=== PATIENT | male | born 1985 | race Caucasian/White ===

== ENCOUNTER → 2017-09-20 | Outpatient (CLI) | payer BC ==
[~2017-09-20] MED LIST: FLONASE 50 MCG16 GM; HYDROCHLOROTHIA25 M1; TAMSULOSIN HYD0.4 MG; VICOPROFEN 7.51 TAB; ZYRTEC ALLERGY10 MG
--- NOTE | 2017-09-21 14:35 | RADIOLOGY REPORT PS360 ---
CT ABD PELVIS W/O CONTRAST HISTORY: URIN ACID, UROLITHIASIS history of kidney stones. Six-month follow-up following lithotripsy. Patient Age: 32 years: Male Ordering Physician: Chino Lenz MD TECHNIQUE: Helical CT scanning performed the abdomen pelvis with no oral nor IV contrast utilized . Sagittal coronal reconstructions on CT workstation. COMPARISON :Previous CT abdomen pelvis February 29, 2016. FINDINGS Lung bases. No active disease. Benign calcified granuloma left lung base. Abdomen pelvis. Lack of oral and IV contrast decreases sensitivity. Liver. Hepatic steatosis with moderate Diffuse fatty changes. No focal lesions. Adrenals. Unremarkable. Gallbladder. Contracted no gallstones. No bili ductal dilatation. Pancreas unremarkable. Kidneys. No urinary tract obstruction. Right kidney. 4-5 small punctate calculi at right kidney-. Nonobstructive. Largest measuring up to 3.6 mm the lower pole right kidney.. But others less than 3 mm size. Left kidney: small less than 3 mm nonobstructive calculus midportion left kidney. Otherwise unremarkable left kidney. It is and ureters unremarkable. Previous February CT bone showed a calculus at the proximal left ureter. This is no longer evident. No calculi seen elsewhere along the course of left ureter. . Pelvis. Urinary bladder appears normal. Unremarkable. Prostate moderate size for age with minimal central calcification.. No pelvic adenopathy or mass. . GI tract. No significant findings no bowel dilatation or obstruction. There is some stool and material at the distal ileum or reflecting concomitant ileocecal valve most likely or less likely some altered biomechanics. Appendix identified and normal. Small bowel is normal in caliber. Stomach unremarkable upper normal wall thickness distal esophagus. Moderate stool most evident at the right and transverse colon. Moderate stool rectosigmoid Osseous structures are unremarkable. No significant findings ...... IMPRESSION: ...... 1. . No acute findings abdomen or pelvis . No obstructive uropathy. Minor observations: 2. Left kidney.-Only a small 3 mm nonobstructive calculus now seen at the midportion left kidney.Previous calculus at proximal left ureterApril 2017 no longer evident 3. Right kidney: 4-5 small punctate calculi throughout right kidney. Largest 3.6 mm lower pole. 4. Fatty changes liver.
== END ==
LOC: RAD 12:43
DX: N20.9 Urinary calculus, unspecified (principal); E79.0 Hyperuricemia without signs of inflammatory arthritis and tophaceous disease